=== PATIENT | female | born 1995 | race Caucasian/White ===

== ENCOUNTER 2017-03-13 12:46 | Emergency (ER) | payer MEDICAID ==
[~2017-03-13] VITALS: Ht 165.1 cm; Wt 68.4 kg
[2017-03-13] MEDS ORDERED: SODIUM CHLORIDE 0.9% 1,000 ML IV ONE (13:21)
[2017-03-13] MEDS ORDERED: SODIUM CHLORIDE FLUSH 10ML SYR IVF ONE (13:30)
[2017-03-13] MEDS ORDERED: SODIUM CHLORIDE 0.9% 1,000ML IVBOLUS ONE (13:30)
[2017-03-13 14:07] LABS: ASPARTATE AMINO TRANSFERASE 17 U/L (15-37); BLOOD UREA NITROGEN 13 mg/dL (7-18)
[2017-03-13 14:30] LABS: DIFF TOTAL CELLS COUNTED 100 CELL DIFF
[2017-03-13 14:33] LABS: ANISOCYTOSIS 2+; VERIFY COUNTS? YES
[2017-03-13 14:34] LABS: MICROCYTOSIS 1+; POLYCHROMASIA 1+
[2017-03-13] MEDS ORDERED: ONDANSETRON 2MG/ML, 2ML IVPush ONE (15:30)
[2017-03-13] MEDS ORDERED: ONDANSETRON 2MG/ML, 2ML ONE (15:32)
[2017-03-13] MEDS ORDERED: CEFTRIAXONE PMX 1GM/50ML 50 ML IVPB ONE (17:00)
[2017-03-13] MEDS ORDERED: CEFTRIAXONE PMX 1GM/50ML 50 ML ONE (17:51)
[2017-03-13 18:49] VITALS: BP 117/72
== END 2017-03-13 18:52 | disposition home or self-care (01) ==
LOC: ED 18:46
DX: O23.12 Infections of bladder in pregnancy, second trimester (principal); Z3A.19 19 weeks gestation of pregnancy
CPT/HCPCS: 36415; 76700; 76815; 80053; 81001; 83690; 85025; 87086; 96361; 96365; 96375; 99285; J0696; J2405; J7030